=== PATIENT | male | born 1975 | race African-American/Black ===

== ENCOUNTER 2019-01-02 09:44 | Emergency (ER) | payer SELFPAY ==
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
== END 2019-01-02 11:30 | disposition home or self-care (01) ==
LOC: ERS 09:44
DX: S80.212A Abrasion, left knee, initial encounter (principal); J30.2 Other seasonal allergic rhinitis; I10 Essential (primary) hypertension; V29.9XXA Motorcycle rider (driver) (passenger) injured in unspecified traffic accident, initial encounter

== ENCOUNTER 2022-07-06 10:16 | Outpatient (CLI) | payer OTHER | END 2022-07-06 10:17 | disposition home or self-care (01) | LOC: BICRAD 10:16 | PROVIDERS: ATTEND Internal Medicine | DX: Z02.71 Encounter for disability determination (principal) | CPT/HCPCS: 72100 ==